=== PATIENT | female | born 1945 | race African-American/Black ===

== ENCOUNTER 2022-09-19 12:48 | Inpatient (IN) | payer OTHER, MEDICAID ==
[~2022-09-19] VITALS: Ht 167.6 cm; Wt 103.9 kg
[2022-09-19 15:52] LABS: BASOPHILS % 1.2 % (0.0-2.0); EOSINOPHILS % 3.4 % (0.0-5.0); HEMATOCRIT. 39.1 % (36.0-48.0); HEMOGLOBIN. 12.8 g/dL (12.0-16.0); LYMPHOCYTES % 31.6 % (20.0-50.0); MEAN CORPUSCULAR VOLUME 85.6 fL (81.0-99.0); MEAN PLATELET VOLUME 10.2 fl (7.4-10.4); MONOCYTES % 8.2 % (2.0-8.0); NEUTROPHILS % 55.6 % (40.0-76.0); PLATELET 196 x1000/uL (130-400); RED BLOOD CELL COUNT 4.57 mill/uL (4.2-5.4); RED CELL DISTRIBUTION WIDTH 13.5 % (11.6-14.6)
[2022-09-19 16:00] LABS: CHLORIDE 102 mEq/L (98-107)
[2022-09-19 16:16] LABS: ETHANOL BLOOD < 10 mg/dL
[2022-09-19] MEDS: NICARDIPINE 50 MG in SODIUM CHLORIDE 0.9% 230 ML IV STA ×2 (17:27→19:59)
[2022-09-19 18:20] LABS: CLARITY URINE CLEAR (CLEAR); COLOR URINE YELLOW (YELLOW); KETONES URINE TRACE (NEGATIVE); LEUKOCYTE ESTERASE URINE 1+ (NEGATIVE); NITRITE URINE POSITIVE (NEGATIVE); OCCULT BLOOD URINE TRACE (NEGATIVE); PROTEIN URINE 2+ (NEGATIVE); SPECIFIC GRAVITY URINE 1.011 (1.005-1.030); UROBILINOGEN URINE 0.2 E.U./dL (0.2-1.0)
[2022-09-19 18:37] LABS: *AMPHETAMINES SCREEN URINE NEGATIVE (NEGATIVE); *BARBITURATES SCREEN URINE NEGATIVE (NEGATIVE); *BENZODIAZEPINES SCREEN URINE NEGATIVE (NEGATIVE); *COCAINE SCREEN URINE NEGATIVE (NEGATIVE); CANNABINOID URINE SCREEN NEGATIVE (NEGATIVE); METHADONE URINE SCREEN NEGATIVE (NEGATIVE); OPIATES URINE SCREEN NEGATIVE (NEGATIVE); PHENCYCLIDINE URINE SCREEN NEGATIVE (NEGATIVE)
[2022-09-19] MEDS ORDERED: CEFTRIAXONE 1 G PREMIX 50 ML IV ONE (19:15)
[2022-09-19] MEDS ORDERED: NICARDIPINE 50 MG in SODIUM CHLORIDE 0.9% 230 ML IV NR (23:15)
[2022-09-20] MEDS: NICARDIPINE 40MG/200ML PREMIX 200 ML IV PRN ×2 (09:24→15:36)
[2022-09-20] MEDS ORDERED: DIPHENHYDRAMINE 50MG/ML VIAL IV PRN (10:15)
[2022-09-20] MEDS ORDERED: IPRATROPIUM/ALBUTEROL 0.5-3(2.5)MG/3ML NEB HHN PRN (10:15)
[2022-09-20] MEDS ORDERED: ONDANSETRON HCL 4MG/2ML INJ IV PRN (10:15)
[2022-09-20] MEDS ORDERED: CEFTRIAXONE 1 G PREMIX 50 ML IV SCH (10:15)
[2022-09-20] MEDS ORDERED: ACETAMINOPHEN 325MG TABLET PO PRN (10:15)
[2022-09-20] MEDS: CLONIDINE 0.1MG TABLET PO PRN ×2 (14:18→19:31)
[2022-09-20] MEDS ORDERED: QUET25TA36 PO (15:19)
[2022-09-20] MEDS ORDERED: HYDR100T26 MT (15:20)
[2022-09-20] MEDS ORDERED: CARV12.545 MT (15:20)
[2022-09-20] MEDS ORDERED: METF-414 MT (15:22)
[2022-09-20] MEDS ORDERED: LISI40TA13 PO (15:22)
[2022-09-20] MEDS ORDERED: DEXTROSE 50% WATER 50ML SYRINGE IV PRN (15:45)
[2022-09-20] MEDS: LISINOPRIL 40MG TABLET PO SCH (16:57)
[2022-09-20] MEDS: CARVEDILOL 12.5MG TABLET PO SCH (16:57)
[2022-09-20] MEDS: METFORMIN HCL 500MG TABLET PO SCH (16:58)
[2022-09-20] MEDS: QUETIAPINE FUMARATE 25MG TABLET PO SCH (16:58)
[2022-09-20] MEDS: BLOOD SUGAR DIAGNOSTIC STRIP TEST SCH ×2 (17:34→21:51)
[2022-09-20] MEDS: CEFTRIAXONE 1,000 MG in DEXTROSE 5% WATER 50 ML IV SCH (18:27)
[2022-09-20] MEDS: INSULIN LISPRO 100 UNITS/ML SUBCUT SCH ×2 (19:03→21:51)
[2022-09-20] MEDS ORDERED: CARVEDILOL 12.5MG TABLET PO SCH (21:00)
[2022-09-20] MEDS: HYDRALAZINE HCL 100MG TABLET PO SCH ×2 (22:00→22:48)
[2022-09-20 23:15] VITALS: BP 128/79
[2022-09-20 23:58] VITALS: BP 128/79
[2022-09-21 04:00] VITALS: BP 205/90
[2022-09-21 05:36] VITALS: BP 177/79
[2022-09-21] MEDS: HYDRALAZINE HCL 100MG TABLET PO SCH ×3 (05:48→21:01)
[2022-09-21] MEDS: HYDRALAZINE 20MG/ML VIAL IV PRN ×3 (05:49→17:34)
[2022-09-21] MEDS: BLOOD SUGAR DIAGNOSTIC STRIP TEST SCH ×4 (05:53→21:00)
[2022-09-21] MEDS: INSULIN LISPRO 100 UNITS/ML SUBCUT SCH ×4 (06:54→21:02)
[2022-09-21 07:15] LABS: BASOPHILS % 0.9 % (0.0-2.0); EOSINOPHILS % 1.6 % (0.0-5.0); HEMOGLOBIN. 13.1 g/dL (12.0-16.0); LYMPHOCYTES % 27.4 % (20.0-50.0); MEAN CORPUSCULAR HEMOGLOBIN 28.9 pg (28.0-32.0); MEAN CORPUSCULAR VOLUME 86.1 fL (81.0-99.0); MONOCYTES % 8.3 % (2.0-8.0); NEUTROPHILS % 61.8 % (40.0-76.0); PLATELET 208 x1000/uL (130-400); RED BLOOD CELL COUNT 4.53 mill/uL (4.2-5.4); RED CELL DISTRIBUTION WIDTH 13.5 % (11.6-14.6)
[2022-09-21 07:25] LABS: CHLORIDE 104 mEq/L (98-107)
[2022-09-21] MEDS: METFORMIN HCL 500MG TABLET PO SCH ×2 (07:40→17:01)
[2022-09-21 08:00] VITALS: BP 188/85
[2022-09-21] MEDS: CARVEDILOL 12.5MG TABLET PO SCH ×2 (08:16→21:01)
[2022-09-21] MEDS: LISINOPRIL 40MG TABLET PO SCH (08:16)
[2022-09-21] MEDS: QUETIAPINE FUMARATE 25MG TABLET PO SCH ×2 (08:16→17:00)
[2022-09-21] MEDS ORDERED: LABETALOL 5MG/ML SYR 20 MG/4 ML SYRINGE IV NR (09:00)
[2022-09-21 16:00] VITALS: BP 186/74
[2022-09-21] MEDS: CEFTRIAXONE 1,000 MG in DEXTROSE 5% WATER 50 ML IV SCH (18:07)
[2022-09-21 20:00] VITALS: BP 159/97
[2022-09-22] VITALS: BP 133/79
[2022-09-22 04:00] VITALS: BP 175/135
[2022-09-22] MEDS: HYDRALAZINE HCL 100MG TABLET PO SCH ×4 (05:46→21:11)
[2022-09-22] MEDS: HYDRALAZINE 20MG/ML VIAL IV PRN (05:53)
[2022-09-22] MEDS: BLOOD SUGAR DIAGNOSTIC STRIP TEST SCH ×4 (06:07→21:12)
[2022-09-22] MEDS: INSULIN LISPRO 100 UNITS/ML SUBCUT SCH ×4 (06:07→21:00)
[2022-09-22] MEDS: METFORMIN HCL 500MG TABLET PO SCH ×2 (07:40→17:40)
[2022-09-22 08:00] VITALS: BP 126/81
[2022-09-22] MEDS: CARVEDILOL 12.5MG TABLET PO SCH ×2 (09:34→21:11)
[2022-09-22] MEDS: LISINOPRIL 40MG TABLET PO SCH (09:34)
[2022-09-22] MEDS: QUETIAPINE FUMARATE 25MG TABLET PO SCH ×2 (09:34→18:01)
[2022-09-22 12:00] VITALS: BP 150/73
[2022-09-22 16:00] VITALS: BP 155/53
[2022-09-22 16:27] LABS: CHLORIDE 104 mEq/L (98-107)
[2022-09-22] MEDS: CEFTRIAXONE 1,000 MG in DEXTROSE 5% WATER 50 ML IV SCH (18:00)
[2022-09-22 20:00] VITALS: BP 152/50
[2022-09-22 23:28] LABS: BASOPHILS % 0.8 % (0.0-2.0); EOSINOPHILS % 2.3 % (0.0-5.0); HEMATOCRIT. 39.8 % (36.0-48.0); HEMOGLOBIN. 13.3 g/dL (12.0-16.0); LYMPHOCYTES % 37.2 % (20.0-50.0); MEAN CORPUSCULAR HEMOGLOBIN 28.5 pg (28.0-32.0); MEAN CORPUSCULAR VOLUME 85.2 fL (81.0-99.0); MEAN PLATELET VOLUME 9.9 fl (7.4-10.4); MONOCYTES % 13.5 % (2.0-8.0); NEUTROPHILS % 46.2 % (40.0-76.0); PLATELET 199 x1000/uL (130-400); RED BLOOD CELL COUNT 4.67 mill/uL (4.2-5.4); RED CELL DISTRIBUTION WIDTH 13.7 % (11.6-14.6)
[2022-09-23] VITALS: BP 153/46
[2022-09-23 04:00] VITALS: BP 112/91
[2022-09-23] MEDS: HYDRALAZINE HCL 100MG TABLET PO SCH (06:12)
[2022-09-23] MEDS: BLOOD SUGAR DIAGNOSTIC STRIP TEST SCH (07:10)
[2022-09-23] MEDS: INSULIN LISPRO 100 UNITS/ML SUBCUT SCH (07:37)
[2022-09-23 08:00] VITALS: BP 108/68
[2022-09-23] MEDS: QUETIAPINE FUMARATE 25MG TABLET PO SCH (08:26)
[2022-09-23] MEDS: METFORMIN HCL 500MG TABLET PO SCH (08:27)
[2022-09-23] MEDS: LISINOPRIL 40MG TABLET PO SCH (08:27)
[2022-09-23] MEDS: CARVEDILOL 12.5MG TABLET PO SCH (08:27)
[2022-09-23 09:04] VITALS: BP 108/68
[2022-09-23] MEDS: HYDRALAZINE 20MG/ML VIAL IV PRN (11:20)
== END 2022-09-23 12:00 | disposition short-term general hospital (02) | DRG 689 ==
LOC: ER 12:48 → CANBEDREQ 19:20 → EDBEDREQSVC 09-20 18:24 → 8WST 09-20 23:15
PROVIDERS: ADMIT Internal Medicine; ATTEND Internal Medicine
DX: N39.0 Urinary tract infection, site not specified (principal); G93.41 Metabolic encephalopathy; I16.0 Hypertensive urgency; E11.9 Type 2 diabetes mellitus without complications; F03.90 Unspecified dementia, unspecified severity, without behavioral disturbance, psychotic disturbance, mood disturbance, and anxiety; Z20.822 Contact with and (suspected) exposure to COVID-19; E78.00 Pure hypercholesterolemia, unspecified; I10 Essential (primary) hypertension
CPT/HCPCS: 36415; 71045; 80048; 80053; 80305; 80307; 80320; 80329; 81003; 82140; 82962; 83036; 83880; 84443; 84484; 85025; 86850; 86900; 87426; 93005; 93970; 99285; C9803; J0360; J0696; J1815; J3490; J7050; J7060; A4315; G0480

== ENCOUNTER 2023-07-22 13:46 | Emergency (ER) | payer OTHER, MEDICAID ==
[~2023-07-22] VITALS: Ht 167.6 cm; Wt 91.0 kg
[~2023-07-22 13:46] MED LIST: CARV12.545 MT; HYDR100T26 MT; LISI40TA13 PO; METF-414 MT; QUET25TA36 PO
[2023-07-22 13:49] VITALS: O2SAT 98
[2023-07-22] MEDS ORDERED: ACETAMINOPHEN 325MG TABLET PO NR (14:49)
[2023-07-22] MEDS ORDERED: SODIUM CHLORIDE 0.9% 500 ML IV ONE (18:45)
[2023-07-22 21:41] LABS: CHLORIDE 105 mEq/L (98-107); INDEX HEMOLYSI 2 (1-3); INDEX ICTERIC 1 (1-4); INDEX LIPEMIC 1 (1-3); POTASSIUM 3.9 mEq/L (3.5-5.1); SODIUM 139 mEq/L (136-145)
[2023-07-22 21:49] LABS: RED BLOOD CELL COUNT 3.99 mill/uL (4.2-5.4)
[2023-07-22 21:50] LABS: ALANINE AMINOTRANSFERASE 13 IU/L (13-61); ALBUMIN 3.5 g/dL (3.4-5.0); ASPARTATE AMINOTRANSFERASE 15 IU/L (15-37); BILIRUBIN TOTAL 0.5 mg/dL (0.1-1.0); CALCIUM 8.8 mg/dL (8.5-10.1); CARBON DIOXIDE 28 mEq/L (21-32); CREATININE 0.7 mg/dL (0.6-1.3); GLUCOSE 134 mg/dL (70-105); UREA NITROGEN BLOOD 18 mg/dL (7-21)
[2023-07-22 21:58] LABS: PROTEIN TOTAL 7.5 g/dL (6.0-8.3); TROPONIN I HIGH SENSITIVITY 16 ng/L (<54)
[2023-07-22 22:02] LABS: HEMATOCRIT. 34.3 % (36.0-48.0); HEMOGLOBIN. 11.3 g/dL (12.0-16.0); MEAN CORPUSCULAR HEMOGLOBIN 28.3 pg (28.0-32.0); MEAN CORPUSCULAR HGB CONC 32.9 g/dL (31.0-37.0); MEAN PLATELET VOLUME 10.8 fl (7.4-10.4); PLATELET 240 x1000/uL (130-400); RED CELL DISTRIBUTION WIDTH 13.9 % (11.6-14.6); WHITE BLOOD COUNT 9.8 x1000/uL (4.5-11.0)
[2023-07-22 22:08] LABS: DIFFERENTIAL COMMENT 1
[2023-07-23 05:02] LABS: PLATELET ESTIMATE NORMAL
[2023-07-23 05:16] VITALS: BP 168/54; PULSE 62; RESP 12; TEMP 98.2
== END 2023-07-23 06:40 | disposition short-term general hospital (02) ==
LOC: ER 14:16
DX: R55 Syncope and collapse (principal); M25.551 Pain in right hip; E11.9 Type 2 diabetes mellitus without complications; E78.00 Pure hypercholesterolemia, unspecified; I10 Essential (primary) hypertension; W19.XXXA Unspecified fall, initial encounter; Y93.89 Activity, other specified; Y92.89 Other specified places as the place of occurrence of the external cause; Y99.8 Other external cause status
CPT/HCPCS: 99284; 70450; 71045; 80053; 85025; 84484; 36415; 72125; 74176; J7030